=== PATIENT | female | born 1950 | race Caucasian/White ===

== ENCOUNTER 2017-11-19 07:49 | Day surgery (SDC) | payer OTHER ==
[2017-11-19] MEDS ORDERED: LIDOCAINE 1% 20 ML MDV ID STA (08:21)
[2017-11-19 08:39] VITALS: TEMP 98.2
[2017-11-19] MEDS ORDERED: DIPRIVAN 20 ML VIAL IVP ONE (10:04)
[2017-11-19 15:26] VITALS: BP 126/56
--- NOTE | 2017-11-20 10:57 | OP ---
PROCEDURE: COLONOSCOPY TO THE CECUM WITH SNARE POLYPECTOMY. ENDOSCOPIST: Carolina AVILES M.D. INDICATION: SCREENING INSTRUMENT: PCFH-190. MEDICATION: PER ANESTHESIA. PROCEDURE: The patient was positioned for colonoscopy. The digital rectal exam was negative. The colonoscope was inserted through the anus and advanced to the cecum. The cecum was identified using the ileocecal valve and the appendiceal orifice as landmarks. The scope was slowly withdrawn through an adequately prepped colon. Nitro Bowel Prep Score equals 9. At the hepatic flexure a 3mm polyp is removed using snare cautery polypectomy. A small polyp in the transverse removed using cold snare polypectomy. A polyp at 60cm removed using snare cautery. The remaining exam was normal and retroflex exam was otherwise notable for hemorrhoids. She tolerated the procedure without immediate complication. Withdraw time 12 minutes and 53 seconds. PLAN: 1. Repeat colonoscopy in 3 years. CC: Dr. Delfino WHEELER
== END 2017-11-19 11:30 | disposition home or self-care (01) ==
LOC: SURG 07:49
PROVIDERS: ATTEND Internal Medicine Gastroenterology
DX: D12.3 Benign neoplasm of transverse colon (principal); D12.5 Benign neoplasm of sigmoid colon

== ENCOUNTER 2018-05-10 10:22 | Outpatient (CLI) | payer OTHER ==
--- NOTE | 2018-05-10 10:49 | DI ---
EXAM: Three views of the right ankle. History: Right ankle knot and pain. Findings / impression: No acute fracture or dislocation. Grossly intact hardware within the distal fibula. Minimal calcaneal enthesiopathy. Degenerative changes of the midfoot with prominent dorsal osteophytes and focal dorsal soft tissue swelling.
--- NOTE | 2018-05-10 10:50 | DI ---
EXAM: Three views of the right foot. History: Right foot palpable abnormality. Findings: No acute fracture or dislocation. Hallux valgus deformity. Grossly intact hardware withi n the distal fibula. Minimal calcaneal enthesiopathy. Degenerative changes of the midfoot with prom inent dorsal osteophytes and focal dorsal soft tissue swelling. Impression: 1. Degenerative changes of the midfoot with prominent dorsal osteophytes and focal dorsal soft tissu e swelling. 2. No acute osseous abnormality. 3. Hallux valgus deformity
== END 2018-05-10 10:23 | disposition home or self-care (01) ==
LOC: RAD 10:22
PROVIDERS: ATTEND Internal Medicine
DX: R22.41 Localized swelling, mass and lump, right lower limb (principal)